=== PATIENT | male | born 1950 | race Caucasian/White ===

== ENCOUNTER 2024-08-02 15:23 | Inpatient (IN) | payer MEDICARE, OTHER ==
[~2024-08-02] VITALS: Ht 175.3 cm; Wt 138.8 kg
[2024-08-02 16:00] VITALS: PULSE 89; RESP 19; O2SAT 96
[2024-08-02 16:26] LABS: Basophils # (auto) 0.1 10 ^3/uL (0-0.2); Basophils % (auto) 0.9 % (0.0-2.0); Eosinophils # (auto) 0.1 10 ^3/uL (0-0.8); Eosinophils % (auto) 0.8 % (0.0-7.0); Hematocrit 42.4 % (41.0-53.0); Hemoglobin 14.6 g/dL (13.5-17.5); Lymphocytes # (auto) 1.4 10 ^3/uL (0.4-5.4); Lymphocytes % (auto) 18.2 % (10.0-50.0); Mean Corpuscular Hemoglobin 31.9 pg (28.0-32.0); Mean Corpuscular Hgb Conc. 34.4 g/dL (32.0-36.0); Mean Corpuscular Volume 92.9 fL (80.0-100.0); Monocytes # (auto) 0.5 10 ^3/uL (0-1.3); Monocytes % (auto) 6.3 % (0.0-12.0); Neutrophils # (auto) 5.5 10 ^3/uL (1.6-8.6); Neutrophils % (auto) 73.8 % (37.0-80.0); Nucleated Red Blood Cells % 0.1 %; Platelet Count (auto) 228 10^3/uL (140-450); Red Blood Cells 4.56 10^6/uL (4.5-5.90); Red Cell Distribution Width 12.8 % (11.8-14.3); White Blood Cell 7.5 10^3/uL (4.4-10.8)
[2024-08-02 16:32] LABS: Chloride 105 mmol/L (98-107); Potassium 4.4 mmol/L (3.5-5.1); Sodium 143 mmol/L (136-145)
[2024-08-02 16:33] LABS: Anion Gap 4 (5-15); Calcium 9.9 mg/dL (8.7-10.4); Carbon Dioxide 34 mmol/L (20-31)
[2024-08-02 16:38] LABS: BUN/Creatinine Ratio 12.8 (10.0-20.0); Blood Urea Nitrogen 15 mg/dL (9-23); Glucose 192 mg/dL (74-106)
[2024-08-02 20:10] LABS: Urine Bacteria FEW /hpf (None Seen); Urine Blood Negative /uL (Negative); Urine Clarity Clear (Clear); Urine Color Light-Yellow (Yellow); Urine Mucus FEW (None Seen); Urine Protein, UAD 2+ (Negative); Urine Specific Gravity 1.012 (1.001-1.035); Urine Urobilinogen Normal (Negative); Urine WBC 2 /hpf (0 - 3); Urine pH 7.5 (5.0-9.0)
[2024-08-02] MEDS ORDERED: ONDANSETRON HCL 4 MG/2 ML VIAL IV PRN (22:15)
[2024-08-02] MEDS ORDERED: HYDROcodone-ACET 5/325MG TAB PO PRN (22:15)
[2024-08-02] MEDS ORDERED: ACETAMINOPHEN 325 MG TAB PO PRN (22:15)
[2024-08-02] MEDS ORDERED: NITROGLYCERIN 0.4 MG SL TAB SL PRN (22:15)
[2024-08-02] MEDS ORDERED: MORPHINE SULFATE INJ 2 MG/ml SYRG IV PRN (22:15)
[2024-08-02] MEDS ORDERED: DEXTROSE (50%) 50ML SYRG IV PRN (22:45)
[2024-08-02] MEDS ORDERED: hydrALAZINE HCL 20 MG/ML VL IV PRN (22:45)
[2024-08-02] MEDS: ACCU-CHEK COMFORT CURVE STRIP VI SCH (23:05)
[2024-08-02] MEDS: InsuLIN REG 1unit/0.01ml Soln (100units/ml) SC SCH (23:07)
[2024-08-02 23:44] VITALS: BP 165/74; PULSE 94; RESP 20; O2SAT 95
[2024-08-02] MEDS ORDERED: IPRATROPIUM BROM 0.5 MG/2.5ML INH SOL NEB PRN (23:45)
[2024-08-02] MEDS ORDERED: ALBUTEROL SULF 2.5 MG/0.5ML(0.5%) NEB SOLN NEB PRN (23:45)
[2024-08-03] VITALS (8 sets, daily range): BP systolic 129–185; BP diastolic 69–97; PULSE 88–110; RESP 17–20; TEMP 97.2–98; O2SAT 92–97
[2024-08-03] MEDS ORDERED: POTA-215 PO (01:27)
[2024-08-03] MEDS ORDERED: TELM1TAB35 PO (01:27)
[2024-08-03] MEDS ORDERED: SIMV5TAB14 PO (01:27)
[2024-08-03] MEDS ORDERED: METF-370 PO (01:27)
[2024-08-03] MEDS ORDERED: OMEGCAP2 OR (01:27)
[2024-08-03] MEDS ORDERED: ASPI-543 PO (01:27)
[2024-08-03] MEDS ORDERED: OMEP20TA PO (01:27)
[2024-08-03] MEDS ORDERED: GAB100C PO (01:27)
[2024-08-03] MEDS ORDERED: MAGN400T40 PO (01:27)
[2024-08-03] MEDS ORDERED: CETI-176 PO (01:27)
[2024-08-03] MEDS: methylPREDNISolone SOD SUCC 40 MG/ML VL IV ONE (01:28)
[2024-08-03] MEDS: AZITHROMYCIN 500MG/ 250ML 250 ML IV ONE (01:33)
[2024-08-03] MEDS: ACCU-CHEK COMFORT CURVE STRIP VI SCH (07:00)
[2024-08-03] MEDS ORDERED: DEXTROSE (50%) 50ML SYRG IV PRN (07:00)
[2024-08-03] MEDS: INSULIN LANTUS (GLARGINE) 1 /0.01ml (100units/ml) SC SCH (07:00)
[2024-08-03] MEDS: InsuLIN REG 1unit/0.01ml Soln (100units/ml) SC SCH ×3 (07:00→21:45)
[2024-08-03] MEDS: PANTOPRAZOLE 40 MG TAB PO SCH (07:11)
[2024-08-03] MEDS: SODIUM CHLOR 0.9% PF (SALINE LOCK) 10ML VIAL/SYR IV SCH (07:11)
[2024-08-03 08:53] LABS: Basophils # (auto) 0 10 ^3/uL (0-0.2); Basophils % (auto) 0.3 % (0.0-2.0); Eosinophils # (auto) 0 10 ^3/uL (0-0.8); Eosinophils % (auto) 0.1 % (0.0-7.0); Hemoglobin 15.6 g/dL (13.5-17.5); Lymphocytes # (auto) 0.7 10 ^3/uL (0.4-5.4); Lymphocytes % (auto) 7.3 % (10.0-50.0); Mean Corpuscular Hemoglobin 31.3 pg (28.0-32.0); Mean Corpuscular Hgb Conc. 33.3 g/dL (32.0-36.0); Monocytes # (auto) 0.1 10 ^3/uL (0-1.3); Monocytes % (auto) 1.1 % (0.0-12.0); Neutrophils # (auto) 8.2 10 ^3/uL (1.6-8.6); Neutrophils % (auto) 91.2 % (37.0-80.0); Platelet Count (auto) 246 10^3/uL (140-450); Red Cell Distribution Width 12.5 % (11.8-14.3)
[2024-08-03 09:06] LABS: Alanine Aminotransferase 42 U/L (7-40); Albumin 4.5 g/dL (3.2-4.8); Alkaline Phosphatase 106 U/L (46-116); Anion Gap 12 (5-15); Aspartate Aminotransferase 27 U/L (13-40); BUN/Creatinine Ratio 13.7 (10.0-20.0); Blood Urea Nitrogen 18 mg/dL (9-23); Calcium 10.2 mg/dL (8.7-10.4); Carbon Dioxide 24 mmol/L (20-31); Chloride 100 mmol/L (98-107); Potassium 4.7 mmol/L (3.5-5.1)
[2024-08-03 09:07] LABS: Bilirubin, Total 1.2 mg/dL (0.2-1.0); Total Protein 7.6 g/dL (5.7-8.2)
[2024-08-03] MEDS: LABETALOL HCL 20 MG/4 ML VL IV PRN (09:50)
[2024-08-03] MEDS: LOSARTAN POTASSIUM 50 MG TAB PO SCH (10:43)
[2024-08-03] MEDS: methylPREDNISolone SOD SUCC 40 MG/ML VL IV SCH (10:43)
[2024-08-03] MEDS: ASPirin-EC 81 mg tab PO SCH (10:43)
[2024-08-03] MEDS: ENOXAPARIN SOD 40 MG/0.4 ML SYRINGE SC SCH (10:44)
[2024-08-03] MEDS: ERGOCALCIFEROL 50,000 UNIT(1.25MG) CAP PO SCH (11:41)
[2024-08-03] MEDS: cefTRIAXone 1GM/50ML D5W 50 ML IV ONE (11:42)
[2024-08-03] MEDS: CYANOCOBALAMIN (B-12) 1000 MCG/1 ML VIAL IM ONE (11:42)
[2024-08-03] MEDS: NIFEdipine ER 30 MG TAB PO ONE (11:59)
[2024-08-03] MEDS: ATORVASTATIN 20 MG TAB PO SCH (21:43)
[2024-08-03] MEDS: NYSTATIN TOPICAL POWDER 15GM TOP SCH (21:58)
[2024-08-03] MEDS ORDERED: INSULIN LANTUS (GLARGINE) 1 /0.01ml (100units/ml) SC SCH (22:00)
[2024-08-04] VITALS (9 sets, daily range): BP systolic 131–159; BP diastolic 57–81; PULSE 85–98; RESP 18–22; TEMP 36.4; O2SAT 91–98
[2024-08-04] MEDS ORDERED: INSULIN LANTUS (GLARGINE) 1 /0.01ml (100units/ml) SC SCH ×3 (07:00→22:00)
[2024-08-04 08:09] LABS: Anion Gap 9 (5-15); Carbon Dioxide 29 mmol/L (20-31); Chloride 102 mmol/L (98-107); Potassium 3.7 mmol/L (3.5-5.1); Sodium 140 mmol/L (136-145)
[2024-08-04 08:10] LABS: Calcium 10.1 mg/dL (8.7-10.4)
[2024-08-04 08:15] LABS: BUN/Creatinine Ratio 20.6 (10.0-20.0); Blood Urea Nitrogen 27 mg/dL (9-23); Glucose 236 mg/dL (74-106)
[2024-08-04 09:20] LABS: Sodium 136 mmol/L (136-145)
[2024-08-04 09:21] LABS: Glucose 429 mg/dL (74-106)
[2024-08-04] MEDS ORDERED: AZITHROMYCIN 500MG/ 250ML 250 ML IV SCH (10:00)
[2024-08-04] MEDS ORDERED: NIFEdipine ER 30 MG TAB PO SCH (10:00)
[2024-08-04] MEDS: NIFEdipine ER 30 MG TAB PO SCH (10:19)
[2024-08-04] MEDS: cefTRIAXone 1GM/50ML D5W 50 ML IV SCH (10:21)
[2024-08-04] MEDS: FUROSEMIDE 20 MG/2 ML VIAL IV ONE (10:22)
[2024-08-04] MEDS: INSULIN LANTUS (GLARGINE) 1 /0.01ml (100units/ml) SC ONE (10:35)
[2024-08-04] MEDS ORDERED: LEVO750T40 PO (13:51)
[2024-08-04] MEDS ORDERED: PRED20TA2 PO (13:51)
== END 2024-08-04 16:38 | disposition home or self-care (01) | DRG 291 ==
LOC: ER 15:23 → EDBD 15:23 → TELE 22:07 → TELE-WESTW 23:33
PROVIDERS: ADMIT Internal Medicine; ATTEND Internal Medicine
DX: I13.0 Hypertensive heart and chronic kidney disease with heart failure and stage 1 through stage 4 chronic kidney disease, or unspecified chronic kidney disease (principal); I50.31 Acute diastolic (congestive) heart failure; J96.01 Acute respiratory failure with hypoxia; N17.0 Acute kidney failure with tubular necrosis; J44.1 Chronic obstructive pulmonary disease with (acute) exacerbation; I16.1 Hypertensive emergency; Z68.42 Body mass index [BMI] 45.0-49.9, adult; N30.00 Acute cystitis without hematuria; I24.9 Acute ischemic heart disease, unspecified; I25.110 Atherosclerotic heart disease of native coronary artery with unstable angina pectoris; E11.65 Type 2 diabetes mellitus with hyperglycemia; E66.01 Morbid (severe) obesity due to excess calories; F95.2 Tourette's disorder; J43.9 Emphysema, unspecified; E11.51 Type 2 diabetes mellitus with diabetic peripheral angiopathy without gangrene; E11.22 Type 2 diabetes mellitus with diabetic chronic kidney disease; N18.2 Chronic kidney disease, stage 2 (mild); G51.0 Bell's palsy; M54.50 Low back pain, unspecified; E53.8 Deficiency of other specified B group vitamins; E55.9 Vitamin D deficiency, unspecified; Z79.84 Long term (current) use of oral hypoglycemic drugs; Z80.0 Family history of malignant neoplasm of digestive organs; Z83.3 Family history of diabetes mellitus; Z87.828 Personal history of other (healed) physical injury and trauma; Z87.891 Personal history of nicotine dependence; Z95.5 Presence of coronary angioplasty implant and graft; Z79.82 Long term (current) use of aspirin; Z79.899 Other long term (current) drug therapy
CPT/HCPCS: 36415; 71045; 71275; 80048; 80053; 81001; 82306; 82607; 82962; 83036; 83880; 84443; 84484; 84550; 85025; 85379; 93005; 93306; 93970; G0378; J1815